=== PATIENT | male | born 1955 | race Caucasian/White ===

== ENCOUNTER 2017-08-23 10:23 | Emergency (ER) | payer MEDICAID ==
[~2017-08-23] VITALS: Ht 182.9 cm; Wt 101.6 kg
[2017-08-23 10:43] VITALS: BP 123/83
== END 2017-08-23 11:14 | disposition home or self-care (01) ==
LOC: ER 10:23
DX: L40.9 Psoriasis, unspecified (principal); F12.10 Cannabis abuse, uncomplicated; F15.10 Other stimulant abuse, uncomplicated

== ENCOUNTER 2023-09-11 12:45 | Inpatient (IN) | payer MEDICARE, MEDICAID ==
[~2023-09-11] VITALS: Ht 180.3 cm; Wt 84.0 kg
[2023-09-11 14:04] LABS: Basophils # (auto) 0 10 ^3/uL (0-0.2); Basophils % (auto) 0.1 % (0.0-2.0); Eosinophils # (auto) 0 10 ^3/uL (0-0.8); Eosinophils % (auto) 0.1 % (0.0-7.0); Hemoglobin 14.1 g/dL (13.5-17.5); Lymphocytes # (auto) 1.1 10 ^3/uL (0.4-5.4); Lymphocytes % (auto) 4.5 % (10.0-50.0); Mean Corpuscular Hemoglobin 30.7 pg (28.0-32.0); Mean Corpuscular Hgb Conc. 33.5 g/dL (32.0-36.0); Mean Corpuscular Volume 91.7 fL (80.0-100.0); Monocytes # (auto) 1.6 10 ^3/uL (0-1.3); Monocytes % (auto) 6.6 % (0.0-12.0); Neutrophils % (auto) 88.7 % (37.0-80.0); Red Blood Cells 4.58 10^6/uL (4.5-5.90); Red Cell Distribution Width 14.2 % (11.8-14.3); White Blood Cell 24.8 10^3/uL (4.4-10.8)
[2023-09-11 14:09] LABS: Alanine Aminotransferase 107 U/L (7-40); Albumin 3.8 g/dL (3.2-4.8); Alkaline Phosphatase 194 U/L (46-116); Anion Gap 11 (5-15); Aspartate Aminotransferase 135 U/L (13-40); BUN/Creatinine Ratio 18.5 (10.0-20.0); Bilirubin, Total 0.8 mg/dL (0.2-1.0); Blood Urea Nitrogen 33 mg/dL (9-23); Calcium 9.7 mg/dL (8.5-10.1); Carbon Dioxide 22 mmol/L (20-30); Chloride 97 mmol/L (98-107); Glucose 114 mg/dL (74-106); Sodium 130 mmol/L (136-145); Total Protein 7.4 g/dL (5.7-8.2)
[2023-09-11 14:10] LABS: Lactic Acid w/Reflex 3.4 mmol/L (0.4-2.0)
[2023-09-11] MEDS ORDERED: ENOXAPARIN SOD 80 MG/0.8ML SYRINGE SC ONE (14:15)
[2023-09-11 14:46] LABS: Potassium 2.8 mmol/L (3.5-5.1)
[2023-09-11] MEDS ORDERED: POTASSIUM EFFERVESENT TAB 25 MEQ PO ONE ×2 (17:00→18:30)
[2023-09-11] MEDS ORDERED: AZITHROMYCIN 500MG/ 250ML 250 ML IV ONE (17:00)
[2023-09-11] MEDS ORDERED: cefTRIAXone 1GM/50ML D5W 50 ML IV ONE (17:00)
[2023-09-11] MEDS ORDERED: SODIUM CHLORIDE 0.9% 1,000 ML IV ONE ×4 (17:00→18:30)
[2023-09-11] MEDS ORDERED: SODIUM CHLORIDE 0.9% 1,000 ML IV SCH (18:30)
[2023-09-11] MEDS ORDERED: NICOTINE 14 MG/24HR TOPICAL PATCH TD ONE (18:30)
[2023-09-11] MEDS ORDERED: NITROGLYCERIN 0.4 MG SL TAB SL PRN (18:30)
[2023-09-11] MEDS ORDERED: VANCOMYCIN PER PHARMACY 0 MG IV SCH (18:30)
[2023-09-11] MEDS ORDERED: HYDROcodone-ACET 5/325MG TAB PO PRN (18:30)
[2023-09-11] MEDS ORDERED: MORPHINE SULFATE INJ 2 MG/ml SYRG IV PRN (18:30)
[2023-09-11] MEDS ORDERED: ACETAMINOPHEN 325 MG TAB PO PRN (18:30)
[2023-09-11] MEDS ORDERED: CEFEPIME 1GM/ 50ML 50 ML IV ONE (19:00)
[2023-09-11] MEDS ORDERED: VANCOMYCIN 1GM/250ML 250 ML IV ONE ×2 (20:00→21:15)
[2023-09-11] MEDS ORDERED: ENOXAPARIN SOD 80 MG/0.8ML SYRINGE SC SCH (22:00)
[2023-09-11] MEDS ORDERED: ASCORBIC ACID 500 MG TAB PO SCH (22:00)
[2023-09-11] MEDS ORDERED: ETOMIDATE (2MG/ML) 20ML VIAL IV ONE (22:32)
[2023-09-11] MEDS ORDERED: ROCURONIUM 10MG/ML 10ML VIAL IV ONE (22:32)
[2023-09-11] MEDS ORDERED: PROPOFOL 100 ML IV ONE (22:39)
[2023-09-11] MEDS ORDERED: IOHEXOL 350 MG/ML 100ML IJ ONE (23:00)
[2023-09-11] MEDS ORDERED: LIDOCAINE HCL 100 MG/5ML (2%) SYRG INJ IV ONE (23:05)
[2023-09-11 23:10] VITALS: RESP 14
[2023-09-11] MEDS ORDERED: LIDOCAINE 50MG/5ML INJ 5ML SYRINGE IV ONE (23:15)
[2023-09-12 00:13] VITALS: BP 163/103; PULSE 70; RESP 20; O2SAT 100
[2023-09-12] MEDS ORDERED: VANCOMYCIN PER PHARMACY 0 MG IV SCH (00:45)
[2023-09-12] MEDS ORDERED: ACETAMINOPHEN 650 MG RECT SUPP PR PRN (00:45)
[2023-09-12] MEDS ORDERED: POTASSIUM CHL 20MEQ/100ML 100 ML IV ONE (00:45)
[2023-09-12 01:01] LABS: Lactic Acid w/Reflex 6.1 mmol/L (0.4-2.0)
[2023-09-12 01:06] VITALS: BP 163/103; PULSE 113; RESP 20; TEMP 97.4; O2SAT 100
[2023-09-12 01:59] LABS: Base Excess -16.4 mmol/L (-2.0-2.0)
[2023-09-12] MEDS ORDERED: CEFEPIME 1GM/ 50ML 50 ML IV SCH (02:00)
[2023-09-12] MEDS ORDERED: ROCURONIUM 10MG/ML 10ML VIAL IV ONE (02:00)
[2023-09-12] MEDS ORDERED: ETOMIDATE (2MG/ML) 20ML VIAL IV ONE (02:00)
[2023-09-12 02:05] VITALS: BP 93/46; PULSE 66; RESP 24; O2SAT 100
[2023-09-12 02:15] VITALS: BP 112/68; PULSE 62; RESP 23; O2SAT 83
[2023-09-12 02:25] LABS: Base Excess -17.1 mmol/L (-2.0-2.0)
[2023-09-12 02:35] VITALS: TEMP 105.5
[2023-09-12] MEDS ORDERED: PROPOFOL 100 ML IV SCH (03:00)
[2023-09-12] MEDS ORDERED: EPINEPHrine HCL 0 ML IV ONE (03:14)
[2023-09-12] MEDS ORDERED: NOREPINEPHRINE 8 MG/250ML KIT 250 ML IV ONE (03:20)
[2023-09-12] MEDS ORDERED: EPINEPHrine HCL 1 MG/10 ML SYRG ONE (03:26)
[2023-09-12] MEDS ORDERED: SODIUM BICARBONATE 8.4% INJ 50ML SYRINGE ONE (03:29)
[2023-09-12] MEDS ORDERED: SODIUM BICARBONATE 8.4 % INJ 50ML VIAL IV ONE (03:32)
[2023-09-12] MEDS ORDERED: EPINEPHrine HCL 250 ML IV ONE (03:42)
[2023-09-12] MEDS ORDERED: NOREPINEPHRINE 8 MG/250ML KIT 250 ML IV SCH (04:30)
[2023-09-12] MEDS ORDERED: EPINEPHrine HCL 250 ML IV SCH (04:30)
[2023-09-12] MEDS ORDERED: MULTIPLE VITAMIN TAB PO SCH (10:00)
[2023-09-12] MEDS ORDERED: ZINC SULFATE 220mg CAP or TAB PO SCH (10:00)
[2023-09-12] MEDS ORDERED: NICOTINE 14 MG/24HR TOPICAL PATCH TD SCH (10:00)
[2023-09-14 09:02] LABS: Hepatitis B Surface Antigen Negative (Negative)
[2023-09-14 09:23] LABS: Hepatitis A Ab IgM Negative
[2023-09-14 09:24] LABS: Hepatitis B Core IgM Negative; Hepatitis C Antibody Negative (Negative)
== END 2023-09-12 09:30 | DRG 871 ==
LOC: ER 12:45 → TELE 18:25 → ICU WEST 09-12 02:49
PROVIDERS: ADMIT Internal Medicine; ATTEND Internal Medicine
PROC: 0BH17EZ Insertion of Endotracheal Airway into Trachea, Via Natural or Artificial Opening (ICD-10-PCS; 2023-09-11)
PROC: 5A1935Z Respiratory Ventilation, Less than 24 Consecutive Hours (ICD-10-PCS; 2023-09-11)
PROC: 5A12012 Performance of Cardiac Output, Single, Manual (ICD-10-PCS; principal; 2023-09-12)
DX: A41.9 Sepsis, unspecified organism (principal); J96.00 Acute respiratory failure, unspecified whether with hypoxia or hypercapnia; I82.431 Acute embolism and thrombosis of right popliteal vein; E87.1 Hypo-osmolality and hyponatremia; N17.9 Acute kidney failure, unspecified; E87.6 Hypokalemia; D72.829 Elevated white blood cell count, unspecified; I95.9 Hypotension, unspecified; F17.210 Nicotine dependence, cigarettes, uncomplicated; F12.10 Cannabis abuse, uncomplicated; R74.01 Elevation of levels of liver transaminase levels
CPT/HCPCS: 36415; 36600; 71045; 71275; 76705; 80053; 80074; 82805; 83605; 83735; 83930; 84132; 85025; 87040; 87070; 87077; 87186; 87205; 92950; 93005; 93971; 94002; 96372; G0378; J0171; J0696; J2704; J3480